=== PATIENT | female | born 1990 | race Caucasian/White ===

== ENCOUNTER 2018-10-27 00:08 | Inpatient (IN) | payer SELFPAY ==
[2018-10-27 00:58] LABS: Urine Blood NEGATIVE (NEG); Urine Glucose NEGATIVE (NEG); Urine Protein NEGATIVE (NEG); Urine Specific Gravity 1.025 (1.005-1.030)
[2018-10-27] MEDS ORDERED: ONDANSETRON 4 MG/2 ML VIAL ONE (01:11)
[2018-10-27] MEDS ORDERED: MEPERIDINE HCL 25 MG/0.5 ML ONE (01:11)
[2018-10-27 01:28] LABS: Absolute Lymphocytes (CBC) 1.4 K/uL (0.7-4.9); Absolute Monocytes 0.6 K/uL (0.1-1.3); Absolute Neutrophil 7.1 K/uL (1.8-8.0); Basophils % 0.1 % (0-1.3); Eosinophils % 0.3 % (0-4.4); Hematocrit 38.1 % (36.0-45.0); Lymphocytes % 15.2 % (15.3-44.8); MCH 30.5 pg (27.0-35.0); MCV 89.5 fL (80-100); MPV 9.5 fL (7.6-11.3); Monocytes % 6.7 % (3.3-12.3); RBC Red Blood Cell Count 4.26 M/uL (3.86-4.86)
[2018-10-27 01:40] LABS: ALT/SGPT 15 U/L (12-78); AST/SGOT 12 U/L (15-37); Albumin 3.8 g/dL (3.4-5.0); Alkaline Phosphatase 35 U/L (45-117); BUN Blood Urea Nitrogen 16 mg/dL (7-18); Bicarbonate 28 mmol/L (21-32); Bilirubin Direct 0.2 mg/dL (0-0.2); Bilirubin Total 0.8 mg/dL (0.2-1.0); Glucose Level 94 mg/dL (74-106); Lipase 163 U/L (73-393); Potassium 3.3 mmol/L (3.5-5.1); Protein, Total 6.9 g/dL (6.4-8.2); Sodium Level 139 mmol/L (136-145)
[2018-10-27 02:04] LABS: Urine Bacteria <20 /HPF (<20); Urine Culture Reflex Order NOT NEEDED; Urine RBC NONE SEEN /HPF (NONE SEEN)
--- NOTE | 2018-10-27 03:26 | ER ---
Nurse's Notes [facility] Name: Raine Hobson Age: 28 yrs Sex: Female : 1990 Arrival Date: 10/27/2018 Time: 00:12 Bed 20 Private MD: Diagnosis: Acute appendicitis Presentation: 10/27 00:31 Presenting complaint: Patient states: Mid abdominal pain that radiates to RLQ; Denies lp1 any N/V/D, fever; States pain has worsened throughout the day. Transition of care: patient was not received from another setting of care. Onset of symptoms was October 25, 2018. Risk Assessment: Do you want to hurt yourself or someone else? Patient reports no desire to harm self or others. Initial Sepsis Screen: Does the patient meet any 2 criteria? No. Patient's initial sepsis screen is negative. Does the patient have a suspected source of infection? No. Patient's initial sepsis screen is negative. Care prior to arrival: None. 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 - Social history:: Smoking status: Patient/guardian denies using tobacco. - Ebola Screening: : No symptoms or risks identified at this time. - Family history:: not pertinent. - Hospitalizations: : No recent hospitalization is reported. Screenin:35 Abuse screen: Denies threats or abuse. Denies injuries from another. Nutritional lp1 screening: No deficits noted. Tuberculosis screening: No symptoms or risk factors identified. Fall Risk None identified. Assessment: 00:33 General: Appears in no apparent distress. Behavior is calm, cooperative, appropriate lp1 for age. Pain: Complains of pain in umbilical area Pain radiates to right lower quadrant, right femoral area and right inguinal area Pain currently is 4 out of 10 on a pain scale. Quality of pain is described as crampy, sharp, Pain began gradually, Is continuous. Neuro: Level of Consciousness is awake, alert, obeys commands, Oriented to person, place, time, situation. Cardiovascular: Patient's skin is warm and dry. Respiratory: Respiratory effort is even, unlabored. GI: Abdomen is flat, Bowel sounds present X 4 quads. Abdomen is tender to palpation in right lower quadrant. : Denies burning with urination. :. EENT: No signs and/or symptoms were reported regarding the EENT system. Derm: Skin is pink, warm \T\ dry. Musculoskeletal: Circulation, motion, and sensation intact. 01:30 Reassessment: CT notified of patient completing oral contrast at this time. lp1 02:30 Reassessment: Patient appears in no apparent distress at this time. Patient and/or lp1 family updated on plan of care and expected duration. Pain level reassessed. Patient is alert, oriented x 3, equal unlabored respirations, skin warm/dry/pink. 03:30 Reassessment: Patient appears in no apparent distress at this time. Patient and/or jb4 family updated on plan of care and expected duration. Pain level reassessed. Patient is alert, oriented x 3, equal unlabored respirations, skin warm/dry/pink. 04:30 Reassessment: Patient appears in no apparent distress at this time. Patient and/or jb4 family updated on plan of care and expected duration. Pain level reassessed. Patient is alert, oriented x 3, equal unlabored respirations, skin warm/dry/pink. Vital Signs: 00:33 BP 131 / 78; Pulse 100; Resp 16; Temp 98.7(O); Pulse Ox 100% on R/A; Weight 44 kg; lp1 Height 5 ft. 1 in. (154.94 cm); Pain 4/10; 04:00 BP 108 / 70; Pulse 109; Resp 16; Temp 98.8(O); Pulse Ox 100% on R/A; jb4 00:33 Body Mass Index 18.33 (44.00 kg, 154.94 cm) lp1 ED Course: 00:12 Patient arrived in ED. es 00:31 Ashley Sanchez, RUI is Primary Nurse. lp1 00:32 Triage completed. lp1 00:33 Arm band placed on right wrist. lp1 00:35 Patient has correct armband on for positive identification. lp1 00:40 Janes Merritt MD is Attending Physician. rn 01:14 Inserted saline lock: 20 gauge in right antecubital area, using aseptic technique. lp1 Blood collected. 02:[address] via wheelchair. kw1 03:00 Report given to RUI Simon. lp1 03:04 CT completed. Patient tolerated procedure well. Patient moved back from [place]. kw1 03:25 Manny Gutierrez MD is Hospitalizing Provider. rn 04:49 No provider procedures requiring assistance completed. Patient admitted, IV remains in jb4 place. Administered Medications: 02:59 Not Given (Patient Refused): Zofran 4 mg IVP once; over 2 minutes lp1 03:00 Not Given (Patient Refused): Demerol 25 mg IVP once lp1 03:48 Drug: Rocephin - (cefTRIAXone) 1 grams {Note: given IVP per pharmacy protocol. .} jb4 Route: IVPB; Infused Over: 30 mins; Site: right antecubital; 03:50 Follow up: Response: No adverse reaction; IV Status: Completed infusion jb4 03:50 Drug: Flagyl 500 mg Volume: 100 ml; Route: IVPB; Rate: 200 ml/hr; Infused Over: 30 jb4 mins; Site: right antecubital; 04:20 Follow up: Response: No adverse reaction; IV Status: Completed infusion jb4 Outcome: 03:25 Decision to Hospitalize by Provider. rn 04:49 Admitted to L \T\ D, accompanied by nurse, via wheelchair, room 279, with chart. jb4 04:49 Condition: stable 04:49 Discharge instructions given to patient, Instructed on the need for admit, Demonstrated understanding of instructions. 04:50 Patient left the ED. jb4 Signatures: Darling Cyr Roman, MD MD rn Pena, Laura, RN RN lp1 Mat Dos Santos RN RN jb4 Taylor Guillory kw1 Corrections: (The following items were deleted from the chart) 04:12 04:00 BP 108 / 70; Pulse 109bpm; Resp 16bpm; Pulse Ox 100% RA; jb4 jb4
--- NOTE | 2018-10-27 03:26 | EDPHYS ---
Physician Documentation [facility] Name: Raine Hobson Age: 28 yrs Sex: Female : 1990 Arrival Date: 10/27/2018 Time: 00:12 Bed 20 Private MD: ED Physician Janes Merritt HPI: 10/27 02:32 This 28 yrs old Female presents to ER via Ambulatory with complaints of rn Abdominal Pain. 02:33 The patient presents with abdominal pain in the periumbilical area. right lower rn quadrant. Onset: The symptoms/episode began/occurred today. The symptoms do not radiate. Associated signs and symptoms: none. Pertinent negatives: nausea and vomiting, anorexia, blood in stools, chest pain, constipation, diarrhea, dysuria, fever, hematuria, vaginal discharge, vomiting blood. The symptoms are described as sharp, stabbing. Modifying factors: The symptoms are alleviated by nothing, the symptoms are aggravated by movement, touching the area. Severity of pain: At its worst the pain was mild in the emergency department the pain is unchanged. The patient has not experienced similar symptoms in the past. The patient has not recently seen a physician. 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 - Social history:: Smoking status: Patient/guardian denies using tobacco. - Ebola Screening: : No symptoms or risks identified at this time. - Family history:: not pertinent. - Hospitalizations: : No recent hospitalization is reported. ROS: 02:33 Constitutional: Negative for fever, chills, and weight loss, Eyes: Negative for injury, rn pain, redness, and discharge, Cardiovascular: Negative for chest pain, palpitations, and edema, Respiratory: Negative for shortness of breath, cough, wheezing, and pleuritic chest pain, Abdomen/GI: + abd pain, no vomiting/diarrhea Back: Negative for injury and pain, : Negative for injury, bleeding, discharge, and swelling, MS/Extremity: Negative for injury and deformity, Skin: Negative for injury, rash, and discoloration, Neuro: Negative for headache, weakness, numbness, tingling, and seizure. Exam: 02:33 Constitutional: This is a well developed, well nourished patient who is awake, alert, rn and in no acute distress. Head/Face: Normocephalic, atraumatic. Eyes: Pupils equal round and reactive to light ENT: MMM Abdomen/GI: soft, mild periumbilical and RLQ tenderness, no rebound Skin: Warm, dry MS/ Extremity: Pulses equal, no cyanosis. Neuro: Awake and alert, GCS 15 Vital Signs: 00:33 BP 131 / 78; Pulse 100; Resp 16; Temp 98.7(O); Pulse Ox 100% on R/A; Weight 44 kg; lp1 Height 5 ft. 1 in. (154.94 cm); Pain 4/10; 04:00 BP 108 / 70; Pulse 109; Resp 16; Temp 98.8(O); Pulse Ox 100% on R/A; jb4 00:33 Body Mass Index 18.33 (44.00 kg, 154.94 cm) lp1 MDM: 00:40 Patient medically screened. rn 03:23 Differential diagnosis: appendicitis, non-specific abd pain, Ureterolithiasis, urinary rn tract infection. Data reviewed: vital signs, nurses notes, lab test result(s), radiologic studies, CT scan, and as a result, I will admit patient. Counseling: I had a detailed discussion with the patient and/or guardian regarding: the historical points, exam findings, and any diagnostic results supporting the discharge/admit diagnosis, lab results, radiology results, the need for further work-up and treatment in the hospital. Response to treatment: the patient's symptoms have mildly improved after treatment. Admission orders: after a detailed discussion of the patient's condition and case, the admit orders are written by me. 10/27 00:47 Order name: Urine Dipstick--Ancillary (enter results) em1 10/27 00:47 Order name: Urine --Ancillary (enter results) em1 10/27 00:48 Order name: Basic Metabolic Panel rn 10/27 00:48 Order name: CBC with Diff rn 10/27 00:48 Order name: Hepatic Function rn 10/27 00:48 Order name: Lipase rn 10/27 00:48 Order name: Urine Microscopic Only rn 10/27 00:58 Order name: Urine --Ancillary; Complete Time: 02:53 EDIA 10/27 00:58 Order name: Urine Dipstick-Ancillary; Complete Time: 02:53 EDIA 10/27 01:30 Order name: CBC with Automated Diff; Complete Time: 02:53 EDIA 10/27 01:40 Order name: Basic Metabolic Panel; Complete Time: 02:53 EDIA 10/27 01:40 Order name: Liver (Hepatic) Function; Complete Time: 02:53 EDIA 10/27 01:40 Order name: Lipase; Complete Time: 02:53 EDIA 10/27 02:05 Order name: Urine Microscopic Only; Complete Time: 02:53 EDIA 10/27 00:48 Order name: IV Saline Lock; Complete Time: 01:15 rn 10/27 00:48 Order name: Labs collected and sent; Complete Time: 01:15 rn 10/27 00:48 Order name: CT Abd/Pelvis - W/Contrast rn 10/27 00:48 Order name: Urine Test (obtain specimen); Complete Time: 01:00 rn 10/27 00:48 Order name: Urine Dipstick-Ancillary (obtain specimen); Complete Time: 01:00 rn Administered Medications: 02:59 Not Given (Patient Refused): Zofran 4 mg IVP once; over 2 minutes lp1 03:00 Not Given (Patient Refused): Demerol 25 mg IVP once lp1 03:48 Drug: Rocephin - (cefTRIAXone) 1 grams {Note: given IVP per pharmacy protocol. .} jb4 Route: IVPB; Infused Over: 30 mins; Site: right antecubital; 03:50 Follow up: Response: No adverse reaction; IV Status: Completed infusion jb4 03:50 Drug: Flagyl 500 mg Volume: 100 ml; Route: IVPB; Rate: 200 ml/hr; Infused Over: 30 jb4 mins; Site: right antecubital; 04:20 Follow up: Response: No adverse reaction; IV Status: Completed infusion jb4 Disposition: 10/27/18 03:25 Hospitalization ordered by Manny Gutierrez for Inpatient Admission. Preliminary diagnosis is Acute appendicitis. - [facility]. - Status is Inpatient Admission. jb4 - Condition is Stable. - Problem is new. - Symptoms have improved. UTI on Admission? No Signatures: Dispatcher [employer] EDMS Taylor Birch RN RN kl Janes Merritt MD MD rn Pena, Laura, RN RN lp1 Mat Dos Santos RN RN jb4 Corrections: (The following items were deleted from the chart) 04:03 03:25 Hospitalization Ordered by Manny Gutierrez MD for Inpatient Admission. Preliminary kl diagnosis is Acute appendicitis. Bed requested for Telemetry/MedSurg (Inpatient). Status is Inpatient Admission. Condition is Stable. Problem is new. Symptoms have improved. UTI on Admission? No. rn 04:50 04:03 10/27/2018 03:25 Hospitalization Ordered by Manny Gutierrez MD for Inpatient jb4 Admission. Preliminary diagnosis is Acute appendicitis. Bed [facility] for [facility]. Status is Inpatient Admission. Condition is Stable. Problem is new. Symptoms have improved. UTI on Admission? No. kl
[2018-10-27] MEDS ORDERED: CEFTRIAXONE/SWI 1gm 1 GM/10 ML SYR ONE (03:51)
[2018-10-27] MEDS ORDERED: METRONIDAZOLE 500mg IVPB 500 MG/100 ML BAG IV ONE (03:52)
[2018-10-27] MEDS ORDERED: ACETAMINOPHEN 500 MG TAB PO PRN (04:49)
[2018-10-27] MEDS ORDERED: D5 0.45 NS 1,000 ML IV SCH (04:49)
[2018-10-27] MEDS ORDERED: MORPHINE 4 MG/ML SYR IV PRN (04:49)
[2018-10-27] MEDS ORDERED: ONDANSETRON 4 MG/2 ML VIAL IV PRN (04:49)
[2018-10-27] MEDS ORDERED: D5 0.45 NS 1,000 ML IV ONE (05:27)
[2018-10-27 05:46] VITALS: BMI 18.5
[2018-10-27 05:59] VITALS: O2SAT 100
[2018-10-27 07:25] LABS: Absolute Lymphocytes (CBC) 1.2 K/uL (0.7-4.9); Absolute Monocytes 0.5 K/uL (0.1-1.3); Basophils % 0.1 % (0-1.3); Eosinophils % 0.1 % (0-4.4); Lymphocytes % 18.5 % (15.3-44.8); MCH 30.8 pg (27.0-35.0); MCV 89.7 fL (80-100); MPV 9.5 fL (7.6-11.3); Monocytes % 6.8 % (3.3-12.3); RBC Red Blood Cell Count 4.01 M/uL (3.86-4.86)
[2018-10-27 07:52] LABS: BUN Blood Urea Nitrogen 11 mg/dL (7-18); Bicarbonate 29 mmol/L (21-32); Glucose Level 108 mg/dL (74-106); Sodium Level 140 mmol/L (136-145)
--- NOTE | 2018-10-27 08:37 | RAD REPORT ---
EXAM DESCRIPTION: CT - Abdomen Pelvis W Contrast - 10/27/2018 6:08 am CLINICAL HISTORY: Abdominal pain. COMPARISON: None. TECHNIQUE: Computed axial tomography of the abdomen and pelvis was obtained. 100 cc Isovue-300 is ad ministered intravenously. Oral contrast was given. Preliminary report generated by virtual radiologic and review prior to dictation All CT scans are performed using dose optimization technique as appropriate and may include automated exposure control or mA/KV adjustment according to patient size. FINDINGS: The liver, spleen, pancreas, adrenals and kidneys appear unremarkable. Small hepatic cysts. The appendix is thickened and extends anterior and inferior to this cecum. A small amount of free flu id is present. Stranding is seen within the adjacent fat. . There is no evidence of diverticulitis A 2 centimeter soft tissue structure is present within the uterine fundus IMPRESSION: Suppurative appendicitis 2 centimeter soft tissue structure within the uterine fundus may represent a fibroid or contents with in the endometrium. A non emergent pelvic ultrasound is recommended for further evaluation
[2018-10-27] MEDS ORDERED: METRONIDAZOLE 500mg IVPB 500 MG/100 ML BAG IV SCH (09:00)
[2018-10-27] MEDS ORDERED: Ringers Lactate 1,000 ML IV ONE (09:28)
[2018-10-27] MEDS ORDERED: LIDOCAINE 1% MPF 5 ML VIAL ONE (10:19)
[2018-10-27] MEDS ORDERED: FENTANYL CITR 100 MCG/2 ML ONE (10:19)
[2018-10-27] MEDS ORDERED: PROPOFOL 200 MG/20 ML VIAL IV ONE (10:19)
[2018-10-27] MEDS ORDERED: ROCURONIUM 50 MG/5 ML VIAL IV ONE (10:19)
[2018-10-27] MEDS ORDERED: MIDAZOLAM HCL 2 MG/2 ML INJ ONE (10:19)
[2018-10-27] MEDS: BUPIVACA 0.25%/EPI 0.0005% MDV 50 ML VIAL ONE ×2 (10:39→10:46)
[2018-10-27] MEDS ORDERED: KETOROLAC 30 MG/ML INJ ONE (10:53)
[2018-10-27] MEDS ORDERED: GLYCOPYRROLATE 0.2 MG/ML SYR ONE (10:53)
[2018-10-27] MEDS ORDERED: NEOSTIGMINE 1 MG/ML -5 ML SYRINGE ONE (10:54)
[2018-10-27] MEDS ORDERED: ONDANSETRON HCL 40 MG/20 ML VIAL ONE (10:54)
[2018-10-27] MEDS ORDERED: METOCLOPRAMIDE 10 MG/2mL INJ ONE (11:04)
--- NOTE | 2018-10-27 11:06 | P.OP ---
Remarketing Rep: MARIANA STEVENSON Preoperative diagnosis: Acute Appendicitis Postoperative diagnosis: Acute Appendicitis Primary procedure: Laparoscopic Appendectomy Anesthesia: GETA + Local Estimated blood loss: <2cc Specimen: Vermiform Appendix Findings: Non-perforated appendicitis Complications: None Transferred to: Recovery Room Condition: Good
[2018-10-27] MEDS ORDERED: HYDROCODONE/APAP 7.5/325 MG TAB PO ONE ×2 (12:16→13:00)
[2018-10-27] MEDS ORDERED: INFLUENZA VACCINE (for 3y+) 0.5 ML DOSE IMVAC ONE (15:19)
[2018-10-27 16:42] VITALS: BP 83/50; TEMP 98.5
--- NOTE | 2018-10-27 20:10 | HP ---
Date of Admission: 10/27/2018 Brief History Of Present Illness: The patient is a 28-year-old female, who presents with p eriumbilical pain beginning yesterday, now localized to the right lower quadrant. She has never had similar episodes before in the past. She denies any nausea, vomiting, diarrhea, constipation, any si milar episodes before in the past. No recent food exposures. No recent travel. No sick contacts. She is 7 months post delivery of her baby, was delivered by . Her pain is somewhat improved since being in the hospital, however, it persists in the right lower quadrant. Past Surgical History: Significant for a . Home Medications: None. Allergies: NO KNOWN DRUG ALLERGIES. 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 Review of Systems: A 10-point review of systems other than HPI, denies. Physical Examination: Vital Signs: At the time of my examination, her BMI is 18.5. Her blood pressure was 102/71, pulse i s 111, respiratory rate 18, temperature 98.5. General: She is awake, alert, oriented. Psychiatric: She is appropriate, conversive. HEENT: Normocephalic. Sclerae icteric. Mucous membranes moist. Oropharynx clear. Neck: Supple. No JVD. Chest: Normal expansion and excursion. Cardiovascular: Regular rate and rhythm. Pulmonary: Clear auscultation bilaterally. Abdomen: Soft with positive right lower quadrant focal peritonitis and peritoneal signs, some in the suprapubic area as well. Otherwise, she has a well-healed scar. No other acute abdominal findings other than of these. Skin: Warm and dry. Extremities: No clubbing, cyanosis, edema. Laboratory Data: Reveals white blood count of 6.8, hemoglobin is 12.4, hematocrit 36.0, platelet cou nt is 186, neutrophils 74%. Sodium 140, potassium 4.0, chloride 107, carbon dioxide 29, BUN 11, crea tinine 0.7, glucose 108, calcium 8.2. AST 12, ALT 15, alkaline phosphatase 35, lipase is 163. Urinalysis was essentially negative. The urine test negative. She had a CT scan performed of the abdomen and pelvis, which was officially read as suppurative appen dicitis 2 cm soft tissue structure within the uterine. Fundus may represent a fibroid contents within the endometrium and nonemergent pelvic ultrasound may recommend further evaluation. The appendix is thickened and extends anterior inferior to the cecum. A small amount of free fluid is present. Stranding is seen within the adjacent fat. Assessment And Plan: This is a 28-year-old female who comes in with signs and symptoms of acute appe ndicitis. 1.IV fluid hydration. 2.Antibiotic coverage. 3.I have explained the risks, benefits, and alternatives of laparoscopy, possible open appendectomy including but not limited to bleeding, infection, damage to surrounding tissues, need for further ope ration and procedures. The patient agrees to proceed as indicated. LLOYD/IKER Voice ID: [id number]
--- NOTE | 2018-10-27 22:28 | OP ---
Date of Procedure: 10/27/2018 Surgeon: Manny Gutierrez MD, Preoperative Diagnosis: Acute appendicitis. Postoperative Diagnosis: Acute appendicitis. Procedure Performed: Laparoscopic appendectomy. Anesthesia: General endotracheal plus local with 0.25% Marcaine. Estimated Blood Loss: Less than 2 cc. Specimen: Vermiform appendix. Findings: Nonperforated appendicitis. Complications: None. Disposition: Transferred to recovery room in good condition. Procedure In Detail: After informed consent was obtained, the patient was brought to the operating r oom, prepped and draped in the usual sterile fashion. After adequate anesthesia achieved, an infraum bilical area was anesthetized with 0.25% Marcaine, sharply incised. A 5-mm trocar was introduced int o the abdomen without evidence of complication. Insufflation was obtained to 15 mmHg at this time. The area was inspected. There was evidence of acute appendicitis with a dilated appendix evident and some free fluid, particularly in the pelvic cul-de-sac. The adnexal structures were inspected. The uterus appeared to have a fibroid evident, but the remainder of the adnexa appeared normal. I place d additional trocar in the suprapubic position after appropriately anesthetizing, sharply incising. The 5-mm trocar was placed without evidence of complication. The umbilical trocar was then up-sized to a 12 mm under direct visualization without evidence of complication. Additional trocar site was c hosen in the left lower quadrant and this was similarly anesthetized, sharply incised, and a 5-mm tro car was introduced into the abdomen without evidence of complication. Insufflation was maintained at this point to 15. The patient was positioned in the head down, right side up position. Ratcheted g rasper was used to grasp the patient's appendix. A mesoappendiceal window was created with the Maryl and retractor. The Endo VIRGINIE-35 blue load was fired across the base of the appendix with good approxi mation of the tissues. LigaSure device was then used to take the mesoappendix down without evidence of complication. There were no additional hemostatic maneuvers required. The appendix was then plac ed in an EndoCatch bag and removed through the umbilical trocar. Reinsufflation was obtained at this time. The abdomen was copiously irrigated multiple times and suctioned until completely dry. The a dnexal was once again inspected and there was no injury to any other vital structures. The appendice al surgical site at the confluence of the cecum had no leakage from the stump and there were no addit ional hemostatic maneuvers required. The patient was then positioned in neutral position. The umbil ical trocar was removed. The umbilical trocar site was closed using a Jt-Kalin suture passer with 0 Vicryl in interrupted fashion with good approximation of the tissues. All skin incisions were then copiously irrigated and the abdomen was completely desufflated under direct visualization witho ut evidence of complication. All trocars were then removed. All skin incisions were copiously irrig ated once again and closed with a 4-0 Monocryl in a running fashion. Dermabond was placed over top. The patient tolerated the procedure well without evidence of complications, transferred to the PACU in good condition. All counts were correct at the end of the case. LLOYD/IKER Voice ID: [id number] Report ID: [id number]
[2018-10-28] MEDS ORDERED: CEFTRIAXONE/SWI 1gm 1 GM/10 ML SYR IV SCH (09:00)
[2018-10-28] MEDS ORDERED: CEFTRIAXONE 1 GM/NS 50 ML 1 GM/50 ML BAG IV SCH (09:00)
== END 2018-10-27 17:40 | disposition home or self-care (01) | DRG 343 ==
LOC: ER 00:08 → ERHOLD 03:28 → 2ND-WC 04:33
PROVIDERS: ADMIT Surgery; ATTEND Surgery
PROC: 0DTJ4ZZ Resection of Appendix, Percutaneous Endoscopic Approach (ICD-10-PCS; principal; 2018-10-27 10:30)
DX: K35.30 Acute appendicitis with localized peritonitis, without perforation or gangrene (principal)
CPT/HCPCS: 36415; 74177; 80048; 80076; 81003; 81015; 81025; 83690; 85025; 88304; 96365; 96375; 99285; J0696; J2175; J2250; J2405; J2704; J2710; J2765; J3010; Q9967

== ENCOUNTER 2020-07-05 22:07 | Emergency (ER) | payer OTHER ==
[2020-07-05] MEDS ORDERED: ACETAMINOPHEN 325 MG TABLET ONE (23:04)
[2020-07-05 23:52] LABS: Absolute Lymphocytes (CBC) 2.2 K/uL (0.7-4.9); Basophils % 0.1 % (0-1.3); Hematocrit 37.5 % (36.0-45.0); Lymphocytes % 31.6 % (15.3-44.8); MPV 9.5 fL (7.6-11.3); RBC Red Blood Cell Count 4.17 M/uL (3.86-4.86)
[2020-07-06 00:02] LABS: Urine Glucose NEGATIVE (NEG); Urine Specific Gravity 1.025 (1.005-1.030)
[2020-07-06 00:03] LABS: Urine Blood NEGATIVE (NEG); Urine Protein NEGATIVE (NEG); Urine pH 7.5 (5.0-7.0)
[2020-07-06 00:35] LABS: BUN Blood Urea Nitrogen 7 mg/dL (7-18); Bicarbonate 28 mmol/L (21-32); Glucose Level 92 mg/dL (74-106); HCG, Quantitative 19482 mIU/mL (1-3); Potassium 3.6 mmol/L (3.5-5.1); Sodium Level 140 mmol/L (136-145)
--- NOTE | 2020-07-06 00:44 | ER ---
Nurse's Notes [facility] Name: Raine Hobson Age: 30 yrs Sex: Female : 1990 Arrival Date: 07/05/2020 Time: 22:12 Bed 19 Private MD: Diagnosis: Pain localized to other parts of lower abdomen; related conditions, unspecified, first trimester Presentation: 07/05 22:24 Chief complaint: Patient states: she is 6 weeks and has been having left lower bb quadrant pain at first intermittently but over the last couple of hours is constant, pt denies vaginal bleeding, vomiting, or diarrhea, denies fever, cough. Coronavirus screen: At this time, the client does not indicate any symptoms associated with coronavirus-19. Ebola Screen: No symptoms or risks identified at this time. Initial Sepsis Screen: Does the patient meet any 2 criteria? No. Patient's initial sepsis screen is negative. Does the patient have a suspected source of infection? No. Patient's initial sepsis screen is negative. Risk Assessment: Do you want to hurt yourself or someone else? Patient reports no desire to harm self or others. Onset of symptoms was July 05, 2020. 22:24 Method Of Arrival: Ambulatory bb 22:24 Acuity: RAUL 3 bb Triage Assessment: 22:28 General: Appears in no apparent distress. Behavior is calm, cooperative. Pain: bb Complains of pain in left lower quadrant Pain currently is 9 out of 10 on a pain scale. Neuro: Level of Consciousness is awake, alert, obeys commands, Oriented to person, place, time, situation. GI: Abdomen is non-distended, Reports lower abdominal pain, Patient currently denies diarrhea, vomiting. : Denies vaginal bleeding. 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 - Social history:: Smoking status: Patient denies any tobacco usage or history of. Patient uses alcohol. Screenin:30 Abuse screen: Denies threats or abuse. Nutritional screening: No deficits noted. vc Tuberculosis screening: No symptoms or risk factors identified. Fall Risk None identified. Assessment: 22:30 GI: Abdomen is tender to palpation. vc 22:30 General: Appears in no apparent distress. comfortable, slender, well groomed, Behavior vc is calm, cooperative, appropriate for age. Pain: Complains of pain in left lower quadrant Pain does not radiate. Pain currently is 8 out of 10 on a pain scale. Quality of pain is described as sharp, stabbing, Pain began gradually, Alleviated by standing up. Neuro: Level of Consciousness is awake, alert, obeys commands. Cardiovascular: Capillary refill < 3 seconds Patient's skin is warm and dry. Respiratory: Airway is patent. GI: Bowel sounds present X 4 quads. : No signs and/or symptoms were reported regarding the genitourinary system. 23:30 Reassessment: Patient appears in no apparent distress at this time. Patient and/or vc family updated on plan of care and expected duration. Pain level reassessed. Patient is alert, oriented x 3, equal unlabored respirations, skin warm/dry/pink. Vital Signs: 22:24 BP 120 / 79; Pulse 98; Resp 14 S; Temp 98.6(O); Pulse Ox 99% on R/A; Weight 45.36 kg bb (R); Height 5 ft. 1 in. (154.94 cm) (R); Pain 9/10; 22:24 Body Mass Index 18.89 (45.36 kg, 154.94 cm) bb ED Course: 22:12 Patient arrived in ED. am2 22:25 Anthony Pulido PA is PHCP. cp 22:25 Latrell Lopez MD is Attending Physician. cp 22:27 Triage completed. bb 22:28 Arm band placed on Patient placed in an exam room, on a stretcher, on pulse oximetry. bb 22:30 Patient has correct armband on for positive identification. Bed in low position. Call vc light in reach. Side rails up X 1. Pulse ox on. NIBP on. 22:46 Calcote, Staci, RN is Primary Nurse. vc 23:15 US Transvaginal Ob In Process Unspecified. EDMS 23:15 Inserted saline lock: 20 gauge in right antecubital area, using aseptic technique. vc 07/06 00:56 No provider procedures requiring assistance completed. IV discontinued, intact, vc bleeding controlled, No redness/swelling at site. Pressure dressing applied. Administered Medications: 07/05 23:10 Drug: Tylenol 650 mg Route: PO; vc Outcome: 07/06 00:44 Discharge ordered by MD. cp 00:56 Discharged to home ambulatory. vc 00:56 Condition: good 00:56 Discharge instructions given to patient, Instructed on discharge instructions, follow up and referral plans. Demonstrated understanding of instructions, follow-up care. 00:57 Patient left the ED. vc Signatures: Dispatcher [employer] EDStephanie Winters RN RN Anthony Quezada PA PA cp Moreno, Amanda am2 Calcote, Vanessa, RN RN vc Corrections: (The following items were deleted from the chart) 07/05 23:59 22:20 GI: Abdomen is tender to palpation vc vc
--- NOTE | 2020-07-06 00:44 | EDPHYS ---
Physician Documentation [facility] Name: Raine Hobson Age: 30 yrs Sex: Female : 1990 Arrival Date: 07/05/2020 Time: 22:12 Bed 19 Private MD: ED Physician Latrell Lopez HPI: 07/05 22:44 This 30 yrs old Female presents to ER via Ambulatory with complaints of cp Abdominal Pain - 6 wks preg. 22:44 The patient presents to the emergency department with abdominal pain, of the left lower cp quadrant, that started 7 day(s) ago. 22:44 course: care: private OB physician, Leakage of Fluid: none cp appreciated, Ultrasound: the patient has not had an ultrasound. Previous pregnancies: in previous pregnancies patient has had no complications. Associated signs and symptoms: Pertinent negatives: dysuria, nausea, vaginal bleeding, vaginal discharge, vomiting. 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 - Social history:: Smoking status: Patient denies any tobacco usage or history of. Patient uses alcohol. ROS: 22:50 Constitutional: Negative for body aches, chills, fever, poor PO intake. cp 22:50 Eyes: Negative for injury, pain, redness, and discharge. cp 22:50 ENT: Negative for ear pain, sore throat. 22:50 Abdomen/GI: Positive for abdominal pain, Negative for nausea, vomiting, and diarrhea. 22:50 : Negative for urinary symptoms, pelvic pain, flank pain, vaginal bleeding, vaginal discharge. 22:50 Skin: Negative for rash. 22:50 All other systems are negative. Exam: 22:55 Constitutional: The patient appears in no acute distress, alert, awake, non-toxic, well cp developed, well nourished. 22:55 Head/Face: Normocephalic, atraumatic. cp 22:55 Eyes: Periorbital structures: appear normal, Conjunctiva: normal, no exudate, no injection, Sclera: no appreciated abnormality, Lids and lashes: appear normal, bilaterally. 22:55 ENT: External ear(s): are unremarkable, Nose: is normal, Mouth: Lips: moist, Oral mucosa: moist, Posterior pharynx: Airway: no evidence of obstruction, patent. 22:55 Chest/axilla: Inspection: normal. 22:55 Cardiovascular: Rate: normal. 22:55 Respiratory: the patient does not display signs of respiratory distress, Respirations: normal, no use of accessory muscles, labored breathing, is not present. 22:55 Abdomen/GI: Inspection: abdomen appears normal, Bowel sounds: active, all quadrants, Palpation: soft, in all quadrants, moderate abdominal tenderness, in the left lower quadrant, rebound tenderness, is not appreciated, voluntary guarding, is not appreciated, involuntary guarding, is not appreciated. 22:55 Back: pain, is absent, ROM is normal. 22:55 Special observations: complaints out of proportion to exam. Vital Signs: 22:24 BP 120 / 79; Pulse 98; Resp 14 S; Temp 98.6(O); Pulse Ox 99% on R/A; Weight 45.36 kg bb (R); Height 5 ft. 1 in. (154.94 cm) (R); Pain 9/10; 22:24 Body Mass Index 18.89 (45.36 kg, 154.94 cm) bb MDM: 22:34 Patient medically screened. cp 23:00 Differential diagnosis: STD, ectopic , ovarian cyst, ovarian torsion. cp 08 00:43 Data reviewed: vital signs, nurses notes, lab test result(s), radiologic studies, cp ultrasound. 00:43 Counseling: I had a detailed discussion with the patient and/or guardian regarding: the cp historical points, exam findings, and any diagnostic results supporting the discharge/admit diagnosis, lab results, radiology results, the need for outpatient follow up, an OB/Gyne specialist, to return to the emergency department if symptoms worsen or persist or if there are any questions or concerns that arise at home. Special discussion: Based on the patient's Hx, exam, and Dx evaluation, there is no indication for emergent surgery or inpatient Tx. It is understood by the patient/guardian that if the Sx's persist or worsen they need to return immediately for re-evaluation. 07/05 22:43 Order name: Quantitative Hcg; Complete Time: 00:40 cp 07/05 22:43 Order name: Abo/rh Typing; Complete Time: 00:40 cp 07/05 22:43 Order name: Basic Metabolic Panel; Complete Time: 00:40 cp 07/05 22:43 Order name: CBC with Diff; Complete Time: 00:04 cp 07/05 22:53 Order name: Urine --Ancillary (enter results); Complete Time: 00:04 tt3 07/06 00:04 Interpretation: Reviewed. 07/05 22:53 Order name: Urine Dipstick--Ancillary (enter results); Complete Time: 00:04 tt3 07/05 22:43 Order name: Urine Test (obtain specimen); Complete Time: 22:53 cp 07/05 22:43 Order name: IV Saline Lock; Complete Time: 23:29 07/05 22:43 Order name: Labs collected and sent; Complete Time: 23:29 cp 07/05 22:43 Order name: NPO; Complete Time: 22:54 cp 07/05 22:43 Order name: Urine Dipstick-Ancillary (obtain specimen); Complete Time: 22:53 07/05 22:43 Order name: US Transvaginal Ob cp Administered Medications: 07/05 23:10 Drug: Tylenol 650 mg Route: PO; vc Disposition: 07/06 06:12 Co-signature as Attending Physician, Latrell Lopez MD I agree with the assessment and 4 plan of care. Disposition: 07/06/20 00:44 Discharged to Home. Impression: Pain localized to other parts of lower abdomen, related conditions, unspecified, first trimester. - Condition is Stable. - Discharge Instructions: Abdominal Pain During , First Trimester of . - Medication Reconciliation Form, Thank You Letter, Antibiotic Education, Prescription Opioid Use form. - Follow up: Private Physician; When: 1 - 2 days; Reason: Recheck today's complaints. - Problem is new. - Symptoms have improved. Signatures: Dispatcher [facility] Stephanie Gutiérrez RN RN Anthony Quezada PA PA cp Wadley, Terrence, MD MD tw4 Staci Valenzulea RN RN vc Corrections: (The following items were deleted from the chart) 00:57 00:44 07/06/2020 00:44 Discharged to Home. Impression: Pain localized to other parts of vc lower abdomen; related conditions, unspecified, first trimester. Condition is Stable. Forms are Medication Reconciliation Form, Thank You Letter, Antibiotic Education, Prescription Opioid Use. Follow up: Private Physician; When: 1 - 2 days; Reason: Recheck today's complaints. Problem is new. Symptoms have improved. cp
[2020-07-06 01:02] VITALS: BP 120/79; TEMP 98.6; O2SAT 99
--- NOTE | 2020-07-06 07:45 | RAD REPORT ---
EXAM DESCRIPTION: US - Transvaginal OB - 07/05/2020 11:16 pm CLINICAL HISTORY: left lower abdomen pain, COMPARISON: No comparisons TECHNIQUE: Endovaginal sonography performed. FINDINGS: Retroflexed uterus shows a normal shaped gestational sac within the fundal portion of the endometrial cavity. Yolk sac is identified. No hematoma or mass within the endometrial cavity. pole is identified. Both ovaries are seen and have normal blood flow within the stroma. No adnexal ma ss to suspect ectopic . No blood or fluid in the cul de sac. Yolk sac and crown-rump length measurements yield a 6 week 0 day age. Calculated MASTER is 02/28/2021. C ardiac activity was seen. Heart rate was variable. The average was 154 BPM. Heart rate ranged from 11 7 to 227 BPM. Preliminary findings provided at the time of the study. IMPRESSION: Single 6 week 0 day IUP with MASTER of 02/28/2021. Cardiac activity was seen. No hematoma, mass or other intrauterine or adnexal suspicious finding.
== END 2020-07-06 00:57 | disposition home or self-care (01) ==
LOC: ER 22:07
DX: O26.891 Other specified pregnancy related conditions, first trimester (principal); Z3A.01 Less than 8 weeks gestation of pregnancy
CPT/HCPCS: 36415; 76817; 80048; 81003; 81025; 84702; 85025; 86900; 86901; 99284